=== PATIENT | female | born 1955 | race Caucasian/White ===

== ENCOUNTER 2019-07-05 10:46 | Emergency (ER) | payer OTHER, SELFPAY ==
--- NOTE | ~2019-07-05 | XR_ITS ---
EXAMINATION: XR knee RT min 4V DATE: 07/05/2019 11:28 INDICATION: Right posterior knee pain TECHNIQUE: Four views of the right knee were obtained. COMPARISON: 11/20/2010 FINDINGS: Alignment is normal. No fracture or osteochondral lesion. There is moderate tricompartmenta l osteoarthritis. A small joint effusion is present. Soft tissues are unremarkable. IMPRESSION: 1. Small joint effusion without acute osseous abnormality. Reviewed, dictated and finalized at location A. [employer]
[2019-07-05 11:01] VITALS: BP 148/92; PULSE 90; RESP 16; TEMP 37.4; O2SAT 98
--- NOTE | 2019-07-05 11:11 | ED.LOWEXIN ---
HPI - Extremity Injury (Lower) General Chief Complaint: Extremity Injury, Lower Stated Complaint: R Leg Injury Time Seen by Provider: 07/05/19 11:08 Source: patient and RN notes reviewed Mode of arrival: ambulatory Limitations: no limitations History of Present Illness HPI Narrative: Patient presents today complaining of an injury to her right leg. She fell at [employer] yesterday and her knee bent back behind her. Denies numbness or tingling. Currently rates her pain 2/10 at rest, with increases to 8/10 with weightbearing. She is tried Advil and topical pain medication without much relief. MD complaint: leg injury Related Data Home Medications Medication Instructions Recorded Confirmed omeprazole magnesium 20 mg 40 mg PO DAILY 07/05/19 07/05/19 tablet,delayed release Allergies Allergy/AdvReac Type Severity Reaction Status Date / Time No Known Allergies Allergy Unknown Unverified 07/05/19 11:08 Review of Systems Review of Systems: Narrative: CONSTITUTIONAL: Denies body aches, fever, chills, or sweats. EYES: Denies visual changes, redness, or discharge. ENT: Denies rhinorrhea, congestion, sore throat, or otalgia. CARDIOVASCULAR: Denies chest pain, palpitations, or edema. RESPIRATORY: Denies cough or dyspnea. GASTROINTESTINAL: Denies abdominal pain, nausea, vomiting, or diarrhea. GENITOURINARY: Denies dysuria or hematuria. SKIN: Denies rash, itching, or wounds. MUSCULOSKELETAL: Denies back pain, or myalgia.+ Right leg injury NEUROLOGIC: Denies headache, numbness, tingling, or weakness. PSYCH: Denies depression or anxiety. [facility] Family History Family History (Updated 12/01/14 @ 09:21 by DOCTOR UNKNOWN) Father Patient's father is Social History Social History Smoking status: Never smoker Second hand tobacco smoke exposure: No Alcohol intake: never Gender identity (if verbalized by the patient): Female Comments At time of signature, I have reviewed and agree with nursing past medical, surgical, social and family history unless otherwise noted. Please see nursing chart for further information. There is no relevant family history pertinent to the presenting complaint Exam Narrative: Exam Narrative: GENERAL: Well-appearing, well-nourished, and in no acute distress. HEAD: Normocephalic, atraumatic. EYES: EOMI. No redness or drainage. Conjunctivae normal. ENT: Mucous membranes pink and moist. NECK: Normal AROM. Supple. CHEST: No respiratory distress. EXTREMITIES: Right leg: Soft tissue tenderness just inferior to the patella as well as the posterior knee. Obvious edema noted. Patient states her foot is also swollen, that cannot be appreciated. No edema of the ankle. Distal sensation intact. Capillary refill normal. Posterior tibial pulse normal. AROM normal. Pain increases with internal and external rotation of the foot. SKIN: Warm, dry, no rash. NEURO: No focal deficits. Alert and oriented x3. Gait steady. PSYCH: Normal affect. No signs of depression or anxiety. Course Vital Signs Vital signs: Vital Signs Temperature 99.3 F 07/05/19 11:01 Pulse Rate 90 07/05/19 11:01 Respiratory Rate 16 07/05/19 11:01 Blood Pressure 148/92 H 07/05/19 11:01 Pulse Oximetry 98 07/05/19 11:01 Temperature 99.3 F 07/05/19 11:01 Pulse Rate 90 07/05/19 11:01 Respiratory Rate 16 07/05/19 11:01 Blood Pressure 148/92 H 07/05/19 11:01 Pulse Oximetry 98 07/05/19 11:01 Reviewed. Pt has been instructed to follow up with her PCP regarding her elevated blood pressure today. MDM - Extremity Injury (Lower) Differential Diagnosis Differential diagnosis: Likely other (Knee sprain, fracture, meniscus injury, ligamental injury) Imaging Data Radiologist's impression: ITS Impressions Knee X-Ray 07/05/19 11:31 IMPRESSION: 1. Small joint effusion without acute osseous abnormality. Critical Care Time Critical Care Time Critical Care
== END 2019-07-05 11:56 | disposition home or self-care (01) ==
PROVIDERS: Emergency Provider Nurse Practitioner; PCP Internal Medicine
DX: S83.91XA Sprain of unspecified site of right knee, initial encounter (principal); W19.XXXA Unspecified fall, initial encounter; K21.9 Gastro-esophageal reflux disease without esophagitis
CPT/HCPCS: 73564; 99213; G0463

== ENCOUNTER → 2019-12-19 10:58 | Outpatient (CLI) | payer OTHER, SELFPAY ==
--- NOTE | ~2019-12-19 | XR_ITS ---
XR hip LT 2V w AP pelvis DATE: 12/19/2019 11:17 INDICATION: Left hip pain. No injury. TECHNIQUE: AP pelvis. AP and lateral views of left hip COMPARISON: None FINDINGS: Moderate osteopenia. No pelvic fracture or bone destruction. The pubic symphysis and sacroi liac joints are intact. Hip joint spaces are symmetric and relatively preserved. There is severe degenerative disease at the included L3-4, L4-5 and L5-S1 interspaces. There is mild rotatory dextroscoliosis of the lumbar spine. There is degenerative change of the facet joints of the lower lumbar area. IMPRESSION: Osteopenia. Rotatory dextroscoliosis and severe degenerative disc disease as well as facet hypertrophy at the mid to lower lumbar spine No significant radiographic abnormality of the left hip Reviewed, dictated and finalized at location A.
== END ==
PROVIDERS: PCP Internal Medicine; Visit Provider Internal Medicine
DX: M85.852 Other specified disorders of bone density and structure, left thigh (principal)
CPT/HCPCS: 73502

== ENCOUNTER 2020-01-02 12:18 | Outpatient (RCR) | payer OTHER, SELFPAY | END 2020-03-19 10:27 | disposition home or self-care (01) | LOC: ANHPT 12:18 | PROVIDERS: PCP Internal Medicine; Visit Provider Internal Medicine | DX: Z46.1 Encounter for fitting and adjustment of hearing aid (principal) | CPT/HCPCS: 99199 ==

== ENCOUNTER 2020-09-23 08:13 | Emergency (ER) | payer OTHER, SELFPAY ==
--- NOTE | 2020-09-23 08:20 | ED.DENTAL ---
HPI - Dental/Oral General Chief complaint: Dental/Oral Stated complaint: Tooth Pain Time Seen by Provider: 09/23/20 08:20 Source: patient and RN notes reviewed Mode of arrival: ambulatory Limitations: no limitations History of Present Illness HPI Narrative: 65-year-old female presents to the [facility] with complaints of dental pain. States that she was supposed to have a root canal done a year ago when Covid hit. Tooth is tender, states that she lost the filling about a year ago. Has an appointment November 05 with a dentist. Swelling noted anterior posterior gum area. Denies fevers. Teeth map: 1. Tooth 7 fractured in half, swelling noted to the gum Related Data Home Medications Medication Instructions Recorded Confirmed cholecalciferol (vitamin D3) 125 125 mcg PO 2XW cap 11/28/19 07/16/20 mcg (5,000 unit) capsule dandelion 500 mg capsule mg PO 11/28/19 06/24/20 flaxseed oil 1,000 mg capsule 1,000 mg PO DAILY 11/28/19 07/16/20 vitamin B complex 1 cap PO DAILY 11/28/19 07/16/20 vitamins A,C,P-okhn-mwqijb 14,320 1 cap PO ONCE cap 11/28/19 07/16/20 unit-226 mg-200 unit capsule vitamins B1 B6 B12 oral liquid 5 ml PO DAILY 11/28/19 07/16/20 Allergies Allergy/AdvReac Type Severity Reaction Status Date / Time No Known Allergies Allergy Unknown Verified 07/16/20 11:13 Review of Systems Review of Systems: All systems reviewed & are unremarkable except as noted in HPI and below Constitutional: Constitutional: Reports no additional constitutional complaints, Denies chills, Denies fever(s) and Denies weakness Eyes: Eyes: Reports no additional eye complaints ENT: Comments: Dental pain upper, #7 Cardiovascular: Cardiovascular: Reports no additional cardiovascular complaints and Denies chest pain Respiratory: Respiratory: Reports no additional respiratory complaints, Denies cough, Denies dyspnea and Denies wheezing Gastrointestinal: Gastrointestinal: Reports no additional gastrointestinal complaints, Denies abdominal pain, Denies diarrhea, Denies nausea and Denies vomiting Musculoskeletal: Musculoskeletal: Reports no additional musculoskeletal complaints and Denies back pain Integumentary/Breasts: Skin/Breast: Reports system reviewed and no additional complaints, except as docu and Denies rash Neurologic: Reports system reviewed and no additional complaints, except as documented, Denies dizziness and Denies headache(s) PMFSH Family History Family History Father Patient's father is Social History Social History Smoking status: Never smoker Second hand tobacco smoke exposure: No Alcohol intake: never Substance use: never Gender identity (if verbalized by the patient): Female Comments At the time of my signature, I reviewed and agree with the nursing past medical, surgical, social, and family history. There is no relevant family history pertinent to the patient complaint. Exam Const: General: healthy appearing, no acute distress and alert Nutritional Appearance: well nourished and obese Orientation/consciousness: patient oriented x3 Limitations: no limitations HENMT: Head: normal to inspection Ears: external ears normal and TM abnormal Face and sinus: normal facial exam and sinuses nontender Mouth: Yes lip normal and Yes moist mucous membranes Teeth and gingiva: abnormal tooth and associated gingiva (2 7) Throat: uvula midline Eyes: Pupils: Equal, round and reactive pupils present Neck: Neck: normal visual inspection and no lymphadenopathy Chest: Chest palpation & inspection: normal inspection of the chest Resp: Effort & Inspection: normal respiratory effort and no use of accessory muscles Auscultation: clear to auscultation bilaterally, no crackles, no rales, no rhonchi and no wheezes Cardio: Rate: regular rate Rhythm: regular rhythm : General: Yes no CVA tenderness
[2020-09-23 08:21] VITALS: BP 176/93; PULSE 100; RESP 16; TEMP 36.6; O2SAT 99
[2020-09-23 08:25] VITALS: BP 168/96
== END 2020-09-23 08:32 | disposition home or self-care (01) ==
PROVIDERS: Emergency Provider Nurse Practitioner; PCP Internal Medicine
DX: S02.5XXA Fracture of tooth (traumatic), initial encounter for closed fracture (principal); X58.XXXA Exposure to other specified factors, initial encounter; K21.9 Gastro-esophageal reflux disease without esophagitis; F41.9 Anxiety disorder, unspecified
CPT/HCPCS: 99213; G0463

== ENCOUNTER 2021-02-11 10:33 | Outpatient (CLI) | payer OTHER, SELFPAY ==
[2021-02-11 11:35] LABS: Add Urine Microscopic? YES; Appearance Urine Cloudy (Clear); Bilirubin Urine Negative (Negative); Blood Urine 2+ (Negative); Color Urine Yellow (Yellow); Glucose Urine UA Negative (Negative); Ketones Urine Negative (Negative); Leukocyte Esterase Ur 3+ LEU/UL (Negative); Mucus Urine Rare /lpf; Nitrate Urine Negative (Negative); Protein Urine Negative (Negative); Squamous Epithelial Cell Urine Rare /hpf (Few); Urobilinogen Urine Negative mg/dL (<2.0); WBC Clumps Urine Present /HPF; WBC Urine >75 /hpf
[2021-02-11 11:42] LABS: Specific Grav Ur 1.003 (1.001-1.035)
== END 2021-02-11 10:34 | disposition home or self-care (01) ==
PROVIDERS: PCP Internal Medicine; Visit Provider Internal Medicine
DX: R30.0 Dysuria (principal)
CPT/HCPCS: 81001; 87077; 87086; 87088; 87186

== ENCOUNTER 2021-03-25 11:41 | Outpatient (CLI) | payer OTHER, SELFPAY ==
[2021-03-25 13:11] LABS: Add Urine Microscopic? YES; Appearance Urine Clear (Clear); Bacteria Urine Trace /hpf; Bilirubin Urine Negative (Negative); Blood Urine Negative (Negative); Color Urine Straw (Yellow); Glucose Urine UA Negative (Negative); Ketones Urine Negative (Negative); Leukocyte Esterase Ur Trace LEU/UL (Negative); Mucus Urine Rare /lpf; Nitrate Urine Negative (Negative); Protein Urine Negative (Negative); RBC Urine 0-2 /hpf (0-2); Specific Grav Ur 1.008 (1.001-1.035); Squamous Epithelial Cell Urine Occasional /hpf (Few); Urobilinogen Urine Negative mg/dL (<2.0)
== END 2021-03-25 11:42 | disposition home or self-care (01) ==
LOC: ANHLAB 11:43
PROVIDERS: PCP Internal Medicine; Visit Provider Internal Medicine
DX: R30.0 Dysuria (principal)
CPT/HCPCS: 81001

== ENCOUNTER 2023-04-20 11:42 | Outpatient (CLI) | payer MEDICARE, SELFPAY ==
--- NOTE | ~2023-04-20 | XR_ITS ---
EXAMINATION: XR chest 2V DATE: 04/20/2023 12:03 INDICATION: Cough, unspecified TECHNIQUE: PA and lateral views of the chest are obtained. COMPARISON: 12/25/2017 FINDINGS: The lungs are free of acute opacities. No pleural effusion or pneumothorax. The heart size is normal. There is a moderate size hiatal hernia. There is moderate thoracic spondylosis. IMPRESSION: 1. No acute cardiopulmonary abnormality. Reviewed, dictated and finalized at location B. [facility]
== END 2023-04-20 11:43 | disposition home or self-care (01) ==
PROVIDERS: PCP Internal Medicine; Visit Provider Physician Assistant
DX: R05.9 Cough, unspecified (principal)
CPT/HCPCS: 71046

== ENCOUNTER → 2023-07-06 07:43 | Outpatient (CLI) | payer MEDICARE, SELFPAY ==
--- NOTE | ~2023-07-06 | US_ITS ---
Limited Abdominal Sonogram: Real-time sonographic imaging of the right upper quadrant was performed. Clinical History: Right upper quadrant pain Findings: The liver appears echogenic, with no evidence of mass lesion or bile duct dilatation. Main portal vein demonstrates normal direction of flow. The gallbladder is well distended, and appears no rmal with no evidence of gallstone or wall thickening. The common bile duct measures 4 mm. The visua lized pancreas, aorta, and IVC are unremarkable. Impression: Diffuse fatty infiltration of liver. Reviewed, dictated and finalized at location M. [employer] Impression: Diffuse fatty infiltration of liver.
== END ==
PROVIDERS: PCP Internal Medicine; Visit Provider Internal Medicine
DX: R10.11 Right upper quadrant pain (principal); K76.0 Fatty (change of) liver, not elsewhere classified
CPT/HCPCS: 76705

== ENCOUNTER 2023-07-08 07:31 | Outpatient (CLI) | payer MEDICARE, SELFPAY ==
[2023-07-08 08:08] LABS: Basophils Percent Auto 0.8 % (0.2-1.2); Eosinophils Percent Auto 0.8 % (0-4.4); Hematocrit 43.1 % (37.0-47.0); Hemoglobin 14.2 g/dL (12.0-15.0); Immature Granulocyte Absolute 0.01 K/mm3 (0.00-0.031); Immature Granulocyte Percent A 0.3 % (0-0.5); Lymphocytes Absolute Auto 1.15 K/mm3 (0.9-3.2); Lymphocytes Percent Auto 32.5 % (18.3-44.2); Mean Corpuscular HGB Conc 32.9 g/dl (32-36); Mean Corpuscular Volume 91.1 fl (80-100); Mean Platelet Volume 9.8 fl (7.4-10.4); Monocytes Absolute Auto 0.5 K/mm3 (0.1-0.6); Monocytes Percent Auto 14.1 % (2.6-8.5); Neutrophils Absolute Auto 1.8 K/mm3 (1.3-6.7); Neutrophils Percent Auto 51.5 % (45.5-73.1); Platelet Count Result 235 k/mm3 (150-375); Red Blood Count 4.73 M/mm3 (4.2-5.4); White Blood Count 3.5 K/mm3 (4.5-10.0)
[2023-07-08 08:16] LABS: Alanine Aminotransferase 21 U/L (6-35); Albumin Level 4.1 g/dL (3.5-5.1); Alkaline Phosphatase 84 U/L (38-126); Anion Gap 5 mmol/L (8-16); Aspartate Amino Transferase 35 U/L (14-36); Bilirubin,Total 0.7 mg/dL (0.2-1.3); Blood Urea Nitrogen 10 mg/dL (7-17); Calcium 9.2 mg/dL (8.4-10.2); Carbon Dioxide 27 mmol/L (22-30); Chloride 103 mmol/L (98-107); Estimated Glomerular Filt Rate > 60; Glucose 105 mg/dL (65-110); Potassium 3.8 mmol/L (3.4-5.0); Sodium 135 mmol/L (137-145)
[2023-07-08 08:52] LABS: Vitamin D 25 Hydroxy 38.2 ng/mL
== END 2023-07-08 07:32 | disposition home or self-care (01) ==
PROVIDERS: PCP Internal Medicine; Visit Provider Internal Medicine
DX: R53.83 Other fatigue (principal); E55.9 Vitamin D deficiency, unspecified; R10.11 Right upper quadrant pain; E78.5 Hyperlipidemia, unspecified
CPT/HCPCS: 36415; 80053; 82306; 84443; 85025

== ENCOUNTER 2023-10-19 13:55 | Outpatient (CLI) | payer MEDICARE, SELFPAY | END 2023-10-19 13:56 | disposition home or self-care (01) | LOC: ANHAUDASC 13:56 | PROVIDERS: PCP Internal Medicine; Visit Provider Otolaryngology | DX: H91.93 Unspecified hearing loss, bilateral (principal) | CPT/HCPCS: 92557; 92567 ==

== ENCOUNTER 2024-09-29 11:26 | Emergency (ER) | payer MEDICARE, SELFPAY ==
[2024-09-29 11:36] VITALS: BP 141/86; PULSE 82; RESP 16; TEMP 36.6; O2SAT 99
--- NOTE | 2024-09-29 11:37 | ED_ITS ---
HPI - URI/Sore Throat General Chief Complaint: Upper Respiratory Infection Stated Complaint: Neck Pain Source: patient and RN notes reviewed Mode of arrival: ambulatory Limitations: no limitations History of Present Illness HPI Narrative: Patient is a 69-year-old female who presents to the [facility] with complaints of left-sided neck pain. Patient states that this has been ongoing for the past 2 days. She denies known injury. Unsure if she may have slept on her neck wrong. States that the pain increases with movement and positioning of the neck. She denies numbness and sensation is intact. She is neurovascularly intact distally. Patient believes she may have strained the neck due to her coughing. She states that she had a horrible bronchitis 2 and half weeks ago with multiple coughing fits. She states that after she recovered from the bronchitis, she developed a sore throat and hoarse voice. She states that those symptoms started improving on of last week. She believes she has re covered from her viral illnesses. Denies recent fever. Related Data Home Medications ?Medication ?Instructions ?Recorded ?Confirmed ?Last Taken ?Type cholecalciferol (vitamin D3) 125 125 mcg PO 2XW 11/28/19 09/21/23 Unknown History mcg (5,000 unit) capsule dandelion root 500 mg capsule mg PO 11/28/19 09/21/23 Unknown History flaxseed oil 1,000 mg capsule 1,000 mg PO DAILY 11/28/19 09/21/23 Unknown History vitamin B complex 1 cap PO DAILY 11/28/19 09/21/23 Unknown History vitamins A,C,S-xuyz-eyvhlu 4,296 1 cap PO ONCE 11/28/19 09/21/23 Unknown History mcg-226 mg-90 mg capsule (ICaps AREDS) vitamins B1 B6 B12 oral liquid 5 ml PO DAILY 11/28/19 09/21/23 Unknown History multivitamin r-jod-ktegrx-herbal cap PO 03/14/22 09/21/23 Unknown History complex #194 300 mcg capsule Allergies Allergy/AdvReac Type Severity Reaction Status Date / Time ciprofloxacin Allergy Unknown Unknown Verified 09/29/24 11:43 Review of Systems Review of Systems: CONSTITUTIONAL: Denies fever, chills, or sweats. EYES: Denies visual changes, redness, or discharge. ENT: Denies otalgia and sore throat CARDIOVASCULAR: Denies chest pain, palpitations, or edema. RESPIRATORY: Denies cough or dyspnea. GASTROINTESTINAL: Denies abdominal pain, nausea, vomiting, or diarrhea. GENITOURINARY: Denies dysuria or hematuria. SKIN: Denies rash or itching. MUSCULOSKELETAL: Reports neck pain. NEUROLOGIC: Denies headache, numbness, or weakness. Pertinent positives per HPI. PMFSH Family History Family History Father Patient's father is Alcoholism Mother Diabetes mellitus Depression Heart disease Sibling Alcoholism Asthma Social History Social History Smoking status: Never smoker Second hand tobacco smoke exposure: No Alcohol intake: never Substance use: never Lack of Transportation: No Lack of Food: Never True Current Housing: I Have Housing Concerned About Future Housing: No Difficulty Paying Gas/Electric Bills: No Difficulty Paying for Meds: No Education: Trade/Vocational Certificate Difficulty w/ Childcare or Family Care: No Gender identity (if verbalized by the patient): Female Comments At the time of my signature, I reviewed and agree with the nursing past medical, surgical, social, and family history. There is no relevant family history pertinent to the patient complaint. Exam Narrative: GENERAL: This is a well-nourished, well-developed patient, in no apparent distress. HEAD: normocephalic, atraumatic. EYES: PERRL. Sclera clear/white. Vision is grossly intact. EARS: External ears normal, auditory canals clear and without drainage, TMs normal without perforation. Hearing grossly intact. NOSE: External nose normal with no obvious nasal discharge, nares without redness, no rhinorrhea. THROAT: Mucous membranes moist, posterior pharynx clear. NECK: Neck supple, non-tender without lymphadenopathy, masses or thyromegaly. No midline tenderness. CARDIOVASCULAR: Regular rate and rhythm without murmurs, gallops, or rubs. RESPIRATORY: Clear to auscultation. Breath sounds equal bilaterally. No wheezes, rales, or rhonchi. GASTROINTESTINAL: Abdomen soft, non-tender, nondistended. Bowel sounds are active. No hepato-splenomegaly, or palpable masses. No guarding. SKIN: warm, intact with no suspicious lesions or rash, good texture and turgor. NEURO: awake, alert, and oriented to person, place and time. There were no obvious focal neurologic abnormalities. EXTREMITIES: No clubbing, cyanosis, or edema. No joint tenderness, effusion, or edema noted. BACK: Nontender without deformity or crepitance. No flank tenderness. Course Course Level of Care: Express Care Visit Vital Signs Vital signs: Vital Signs Temperature 97.8 F 09/29/24 11:36 Pulse Rate 82 09/29/24 11:36 Respiratory Rate 16 09/29/24 11:36 Blood Pressure 141/86 H 09/29/24 11:36 Pulse Oximetry 99 09/29/24 11:36 Temperature 97.8 F 09/29/24 11:36 Pulse Rate 82 09/29/24 11:36 Respiratory Rate 16 09/29/24 11:36 Blood Pressure 141/86 H 09/29/24 11:36 Pulse Oximetry 99 09/29/24 11:36 Reviewed MDM - URI/Sore Throat MDM Narrative Medical decision making narrative: Use the RICE method at home. May take ibuprofen and/or Tylenol if needed. If symptoms persist in 1 week after conservative treatment, follow-up with specialist. Differential Diagnosis Differential diagnosis: Likely other (cervical strain, laryngitis, pharyngitis) Critical Care Time Critical Care Time Critical Care Time: No Discharge Plan Discharge Clinical Impression: Acute cervical myofascial strain Patient Disposition: Home Condition: Stable Instructions: Muscle Strain (ED), P.R.I.C.E. Treatment (ED) Additional Instructions: Use the RICE method at home. May take ibuprofen and/or Tylenol if needed. If symptoms persist in 1 week after conservative treatment, follow-up with specialist. Patient Language: Urdu Prescriptions: New dexamethasone 4 mg tablet 4 mg PO DAILY 5 Days Qty: 5 0RF naproxen 500 mg tablet 500 mg PO BID PRN (Reason: pain) Qty: 20 0RF cyclobenzaprine 5 mg tablet 5 mg PO HS PRN (Reason: muscle spasm) Qty: 10 0RF No Action om-vq-wjiyet-herbal comp #194 300 mcg capsule PO vitamins B1 B6 B12 Liquid 5 ml PO DAILY Rx Instructions: administer 1 hour before a meal vitamin B complex Capsule 1 cap PO DAILY cholecalciferol (vitamin D3) 125 mcg (5,000 unit) capsule 125 mcg PO 2XW ICaps AREDS 14,320-226-200 jfda-kx-cxfj capsule 1 cap PO ONCE flaxseed oil 1,000 mg capsule 1,000 mg PO DAILY Rx Instructions: administer with a meal dandelion root 500 mg capsule PO esomeprazole magnesium [Nexium] 20 mg capsule,delayed release(DR/EC) 20 mg PO DAILY Qty: 90 2RF azithromycin [Zithromax Z-Scotty] 250 mg tablet See Rx Instructions PO .COMPLEX Qty: 6 0RF Rx Instructions: take 500 mg today (day 1), then 250 mg for 4 days (days 2-5) PO Follow-up/Referrals: Abdullahi Lion DO [Primary Care Provider] - Time of Disposition: 11:48
== END 2024-09-29 11:51 | disposition home or self-care (01) ==
PROVIDERS: Emergency Provider Nurse Practitioner; PCP Internal Medicine
DX: S16.1XXA Strain of muscle, fascia and tendon at neck level, initial encounter (principal); X58.XXXA Exposure to other specified factors, initial encounter
CPT/HCPCS: 99213; G0463

== ENCOUNTER 2025-02-06 12:51 | Emergency (ER) | payer MEDICARE, SELFPAY ==
--- NOTE | ~2025-02-06 | XR_ITS ---
EXAMINATION: XR abdomen/kub 1V DATE: 02/06/2025 13:42 INDICATION: Abdominal bloating. Right flank pain. TECHNIQUE: A supine view of the abdomen on 2 radiographs was obtained. COMPARISON: None. FINDINGS: Moderate amount of stool and air in nondilated large bowel. Small amount of air in nondilated small bowel. Bones appear osteopenic. Moderate dextro convex curvature of the lumbar spine. There are a few less than 1.0 cm calcifications projecting over the pelvis which may represent phleboliths, however, a distal ureteral stone or bladder stone or possible. IMPRESSION: 1. Nonspecific abdomen with a moderate amount of stool. If symptoms persist or worsen, consider a short-term follow-up study or additional imaging for further assessment. Reviewed, dictated and finalized at location Q. IMPRESSION: 1. Nonspecific abdomen with a moderate amount of stool. If symptoms persist or worsen, consider a short-term follow-up study or additio nal imaging for further assessment.
[2025-02-06 13:03] VITALS: BP 138/73; PULSE 87; RESP 16; TEMP 36.8; O2SAT 98
[2025-02-06 13:40] LABS: EDUAAPPEAR Clear; EDUABILI Negative (Negative); EDUABLOOD Trace (Negative); EDUACOLOR1 Yellow; EDUAGLUCOSE Negative (Negative); EDUAKETONE Negative (Negative); EDUALEUKO Negative (Negative); EDUANITRATE Negative (Negative); EDUAPH 5.5; EDUAPROTEIN Negative (Negative); EDUASPGRAVITY 1.010; EDUAUROBILI 0.2
--- NOTE | 2025-02-06 14:26 | ED.BACK ---
HPI - Back Pain/Injury General Chief Complaint: Back Pain/Injury Stated Complaint: R side back pain Time Seen by Provider: 02/06/25 13:05 Source: patient Mode of arrival: ambulatory Limitations: no limitations History of Present Illness HPI Narrative: Vaishali is a 69-year-old female patient presenting to the clinic today with complaints of right-sided flank pain, abdominal bloating, nausea , and increase in stooling x3-4 days. Last bowel movement was today. Denies any blood in her stool or diarrhea. History of mixed IBS. No fevers, chills, body aches. She denies any urinary symptoms. No history kidney stones. Has taken Advil for her symptoms. Rates pain 6/10-pain is constant ache and is sharp at times. Related Data Home Medications ?Medication ?Instructions ?Recorded ?Confirmed ?Last Taken ?Type cholecalciferol (vitamin D3) 125 125 mcg PO 2XW 11/28/19 09/21/23 Unknown History mcg (5,000 unit) capsule dandelion root 500 mg capsule mg PO 11/28/19 09/21/23 Unknown History flaxseed oil 1,000 mg capsule 1,000 mg PO DAILY 11/28/19 09/21/23 Unknown History vitamin B complex 1 cap PO DAILY 11/28/19 09/21/23 Unknown History vitamins A,C,Q-ckpd-ypjbli 4,296 1 cap PO ONCE 11/28/19 09/21/23 Unknown History mcg-226 mg-90 mg capsule (ICaps AREDS) vitamins B1 B6 B12 oral liquid 5 ml PO DAILY 11/28/19 09/21/23 Unknown History multivitamin r-kzm-wxkxch-herbal cap PO 03/14/22 09/21/23 Unknown History complex #194 300 mcg capsule Allergies Allergy/AdvReac Type Severity Reaction Status Date / Time ciprofloxacin Allergy Unknown Unknown Verified 02/06/25 13:09 Review of Systems Review of Systems: Pertinent positives per HPI. Patient denies any fever, chills, rash, headache, visual changes, dizziness, cough, runny nose, sore throat, shortness of breath, chest pain, palpitations, nausea, vomiting, diarrhea, constipation, abdominal pain, or any urinary issues. [facility] Family History Family History Father Patient's father is Alcoholism Mother Diabetes mellitus Depression Heart disease Sibling Alcoholism Asthma Social History Social History Smoking status: Never smoker Second hand tobacco smoke exposure: No Alcohol intake: never Substance use: never Lack of Transportation: No Lack of Food: Never True Current Housing: I Have Housing Concerned About Future Housing: No Difficulty Paying Gas/Electric Bills: No Difficulty Paying for Meds: No Education: Trade/Vocational Certificate Difficulty w/ Childcare or Family Care: No Gender identity (if verbalized by the patient): Female Comments At the time of my signature, I reviewed and agree with the nursing past medical, surgical, social, and family history. There is no relevant family history pertinent to the patient complaint. Exam Narrative: General: Well-developed, obese, in no apparent distress. Head: Normocephalic, atraumatic. Cardio: Regular rate and rhythm, s1 and s2 normal, no murmur appreciated. Resp: Clear to auscultation bilaterally, no rhonchi, rales, wheezing or rubs. Abdomen: Soft, pliable, bowel sounds present in all quadrants, generalized abdomen tender to palpation, no organomegly, no CVAT tenderness. Course Course Emergency Course: Portions of this record may have been created with voice recognition software. Level of Care: Express Care Visit Vital Signs Vital signs: Vital Signs Temperature 36.8 C 02/06/25 13:03 Pulse Rate 87 02/06/25 13:03 Respiratory Rate 16 02/06/25 13:03 Blood Pressure 138/73 02/06/25 13:03 Pulse Oximetry 98 02/06/25 13:03 Oxygen Delivery Room Air 02/06/25 13:03 Temperature 36.8 C 02/06/25 13:03 Pulse Rate 87 02/06/25 13:03 Respiratory Rate 16 02/06/25 13:03 Blood Pressure 138/73 02/06/25 13:03 Pulse Oximetry 98 02/06/25 13:03 Oxygen Delivery Room Air 02/06/25 13:03 Vital signs reviewed MDM - Back Pain/Injury MDM Narrative Medical decision making narrative: At the time of visit patient is resting comfortably on the exam table. Patient appears to be nontoxic. Complaints of right-sided flank pain, abdominal bloating, nausea , and increase in stooling x3-4 days. Last bowel movement was today. Denies any blood in her stool or diarrhea. History of mixed IBS. No fevers, chills, body aches. She denies any urinary symptoms. No history kidney stones. Has taken Advil for her symptoms. Rates pain 6/10-pain is constant ache and is sharp at times. On exam patient has right upper quadrant/right flank area tenderness. Bowel sounds present all 4 quadrants. Urinalysis dip and KUB x-ray was ordered. Labs: Urine dip shows trace of blood no sign of infection.-patient reports she has had a trace of blood in her urine before and has been worked up with Urology. Diagnostics: KUB x-rays show moderate stool in the colon with some possible phleboliths in the pelvis. Plan: I suspect patient has right flank pain and constipation. Patient is concerned about her gallbladder. Offer to send patient to the ER for further workup and she declined at this time. Recommend to follow-up with her PCP. Recommend follow-up with PCP in 3-5 days. Supportive measures were discussed with the patient and they voiced understanding discharge instructions and agrees to treatment plan. Return precautions reviewed Differential Diagnosis Differential diagnosis: Likely lumbar radiculopathy, sciatica, strain of lumbar region, renal colic, pyelonephritis (constipation), thoracic back pain, AAA and discitis Lab Data Labs: Lab Results 02/06/25 Range/Units 13:37 POC Urine Color Yellow POC Urine Clarity Clear POC Urine pH 5.5 POC Ur Specif [place] 1.010 POC Urine Protein Negative (Negative) POC Ur Glucose (UA) Negative (Negative) POC Urine Ketones Negative (Negative) POC Urine Blood Trace (Negative) POC Urine Nitrite Negative (Negative) POC Urine Bilirubin Negative (Negative) POC Urine Urobilinogen 0.2 POC U Leukocyte Esteras Negative (Negative) Discharge Plan Discharge Clinical Impression: Acute abdominal pain in right flank Constipation Qualifiers: Constipation type: unspecified constipation type Qualified Code(s): K59.00 - Constipation, unspecified Patient Disposition: Home Condition: Stable Instructions: Antibiotic Form, Constipation (ED), Flank Pain (ED) Additional Instructions: KUB x-ray shows moderate amount of stool in your colon with no sign of obstruction. You do have a few 1 cm calcifications projecting over your pelvis which could represent phleboliths, distal ureter stone, or bladder stones Increase fluids and stay well hydrated Increase fiber in your diet Take MiraLax daily as discussed for constipation Follow-up with PCP in 3-5 days if symptoms persist Go the emergency room if symptoms worsen-fever, increase in abdominal pain, increase in back pain, or any other concerning symptoms Patient Language: Maltese Prescriptions: No Action dexamethasone 4 mg tablet 4 mg PO DAILY 5 Days Qty: 5 0RF naproxen 500 mg tablet 500 mg PO BID PRN (Reason: pain) Qty: 20 0RF cyclobenzaprine 5 mg tablet 5 mg PO HS PRN (Reason: muscle spasm) Qty: 10 0RF so-hd-xgboxi-herbal comp #194 300 mcg capsule PO vitamins B1 B6 B12 Liquid 5 ml PO DAILY Rx Instructions: administer 1 hour before a meal vitamin B complex Capsule 1 cap PO DAILY cholecalciferol (vitamin D3) 125 mcg (5,000 unit) capsule 125 mcg PO 2XW ICaps AREDS 14,320-226-200 jewr-kv-fxnu capsule 1 cap PO ONCE flaxseed oil 1,000 mg capsule 1,000 mg PO DAILY Rx Instructions: administer with a meal dandelion root 500 mg capsule PO esomeprazole magnesium [Nexium] 20 mg capsule,delayed release(DR/EC) 20 mg PO DAILY Qty: 90 2RF azithromycin [Zithromax Z-Scotty] 250 mg tablet See Rx Instructions PO .COMPLEX Qty: 6 0RF Rx Instructions: take 500 mg today (day 1), then 250 mg for 4 days (days 2-5) PO Follow-up/Referrals: PHYSICIAN,GROUP DIRECTOR [Primary Care Provider, Internal Medicine] Time of Disposition: 14:05 Quality NIHSS Nursing Documentation ED NIHSS nursing documentation: reviewed/agree
== END 2025-02-06 14:10 | disposition home or self-care (01) ==
PROVIDERS: Emergency Provider Nurse Practitioner Family
DX: R10.9 Unspecified abdominal pain (principal); K59.00 Constipation, unspecified
CPT/HCPCS: 74018; 81003; 99213; G0463